=== PATIENT | male | born 1985 | race Caucasian/White ===

== ENCOUNTER 2023-08-26 09:50 | Emergency (ER) | payer OTHER, SELFPAY ==
--- NOTE | ~2023-08-26 | XR_ITS ---
XR ankle LT min 3V DATE: 08/26/2023 10:29 INDICATION: Trauma from a fall. Pain and swelling lateral ankle TECHNIQUE: 4 views of left ankle COMPARISON: None FINDINGS: Skin colin are noted in the proximal to mid and lower leg. Line there is prominent latera l ankle soft tissue swelling. There are 3 screws oriented transversely through the distal tibial epiphysis. No recent fracture or dislocation of the ankle or disruption of the ankle mortise is detected. No per iosteal reaction or bone destruction. Distal Achilles tendon calcification. IMPRESSION: Prominent lateral left ankle soft tissue swelling; no fracture or dislocation Reviewed, dictated and finalized at location A. IMPRESSION: Prominent lateral left ankle soft tissue swelling; no fracture or d islocation
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
[2023-08-26 10:03] VITALS: BP 130/86; PULSE 100; RESP 18; TEMP 36.7; O2SAT 96
[2023-08-26 10:04] VITALS: BP 130/86; PULSE 100; RESP 18; TEMP 36.7; O2SAT 96
== END 2023-08-26 11:18 | disposition home or self-care (01) ==
PROVIDERS: Emergency Provider Nurse Practitioner Family
DX: S93.402A Sprain of unspecified ligament of left ankle, initial encounter (principal); S96.912A Strain of unspecified muscle and tendon at ankle and foot level, left foot, initial encounter; X50.0XXA Overexertion from strenuous movement or load, initial encounter
CPT/HCPCS: 73610; 99213; G0463